=== PATIENT | male | born 1980 | race Caucasian/White ===

== ENCOUNTER 2017-12-01 17:49 | Emergency (ER) | payer OTHER ==
[2017-12-01] MEDS ORDERED: FLUORESCEIN SODIUM 0.6 MG/WRAP ONE (18:48)
[2017-12-01] MEDS ORDERED: TETRACAINE HCL 0.5% 2ML OPTH ONE (18:48)
--- NOTE | 2017-12-01 19:12 | EDPHYS ---
Physician Documentation [facility] Name: Jeyson Jones Age: 36 yrs Sex: Male : 1980 Arrival Date: 12/01/2017 Time: 17:52 Bed Treatment Private MD: None, None ED Physician Alan oPsada HPI: 12/01 19:30 This 36 yrs old Male presents to ER via Ambulatory with complaints of Foreign pm1 Body In Right Eye. 19:30 The patient is experiencing foreign body sensation, to the right eye, caused by debris, pm1 from hair cut. Onset: The symptoms/episode began/occurred yesterday. Duration: the symptoms are continuous. Aggravated by nothing. Alleviated by eye flush. Associated signs and symptoms: Pertinent negatives: vision change. Patient wears glasses, wears soft contacts. Severity of symptoms: in the emergency department the symptoms have improved. The patient has not experienced similar symptoms in the past. Historical: - Allergies: 17:58 No Known Allergies; aa5 - PMHx: 17:58 None; aa5 - PSHx: 17:58 None; aa5 - Immunization history:: Last tetanus immunization: < 5 years ago. - Social history:: Smoking status: Patient/guardian denies using tobacco. - Ebola Screening: : No symptoms or risks identified at this time. ROS: 19:30 Constitutional: Negative for fever, chills, and weight loss. pm1 19:30 ENT: Negative for injury, pain, and discharge, Neck: Negative for injury, pain, and swelling, Cardiovascular: Negative for chest pain, palpitations, and edema, Respiratory: Negative for shortness of breath, cough, wheezing, and pleuritic chest pain, Abdomen/GI: Negative for abdominal pain, nausea, vomiting, diarrhea, and constipation, Back: Negative for injury and pain, MS/Extremity: Negative for injury and deformity, Skin: Negative for injury, rash, and discoloration, Neuro: Negative for headache, weakness, numbness, tingling, and seizure. 19:30 Eyes: Positive for foreign body sensation, Negative for blurry vision, redness, tearing, vision loss, visual disturbance. Exam: 19:30 Constitutional: This is a well developed, well nourished patient who is awake, alert, pm1 and in no acute distress. Head/Face: Normocephalic, atraumatic. 19:30 ENT: Nares patent. No nasal discharge, no septal abnormalities noted. Tympanic membranes are normal and external auditory canals are clear. Oropharynx with no redness, swelling, or masses, exudates, or evidence of obstruction, uvula midline. Mucous membranes moist. Neck: Trachea midline, no thyromegaly or masses palpated, and no cervical lymphadenopathy. Supple, full range of motion without nuchal rigidity, or vertebral point tenderness. No Meningismus. Chest/axilla: Normal chest wall appearance and motion. Nontender with no deformity. No lesions are appreciated. Cardiovascular: Regular rate and rhythm with a normal S1 and S2. No gallops, murmurs, or rubs. Normal PMI, no JVD. No pulse deficits. Respiratory: Lungs have equal breath sounds bilaterally, clear to auscultation and percussion. No rales, rhonchi or wheezes noted. No increased work of breathing, no retractions or nasal flaring. Abdomen/GI: Soft, non-tender, with normal bowel sounds. No distension or tympany. No guarding or rebound. No evidence of tenderness throughout. Back: No spinal tenderness. No costovertebral tenderness. Full range of motion. Skin: Warm, dry with normal turgor. Normal color with no rashes, no lesions, and no evidence of cellulitis. MS/ Extremity: Pulses equal, no cyanosis. Neurovascular intact. Full, normal range of motion. 19:30 Eyes: Periorbital structures: appear normal, Pupils: no acute changes, normal size, normal reaction to light, Extraocular movements: no acute changes, Conjunctiva: normal, no chemosis, no excoriation, no exudate, no injection, no subconjunctival hemorrhage no abnormal tearing, Corneas: abrasion, that is small, on the right, at 3 o'clock, foreign body, is not appreciated, a fluorescein strip employed to appreciate the findings, Sclera: no appreciated abnormality, Lids and lashes: appear normal, bilaterally, no acute changes. 19:30 Neuro: Orientation: is normal, Gait: is steady, at a normal pace, without difficulty. Vital Signs: 17:58 BP 135 / 94; Pulse 72; Resp 18 S; Temp 98.2(O); Pulse Ox 99% on R/A; Weight 90.72 kg aa5 (R); Height 6 ft. 0 in. (182.88 cm) (R); Pain 0/10; 17:58 Body Mass Index 27.12 (90.72 kg, 182.88 cm) aa5 Visual Acuity: 18:55 Left Eye Visual acuity 20/20, Pupil size 4 mm, Normal, React To Light, Reactive To sg Accomodation; Right Eye Visual acuity 20/20, Pupil size 4 mm, Normal, React To Light, Reactive To Accomodation; Both Eyes Visual acuity 20/10; With Lenses; MDM: 18:24 Patient medically screened. [facility] 19:10 Data reviewed: vital signs. Data interpreted: Pulse oximetry: on room air is 99 %. pm1 Interpretation: normal. Counseling: I had a detailed discussion with the patient and/or guardian regarding: the historical points, exam findings, and any diagnostic results supporting the discharge/admit diagnosis, the need for outpatient follow up, to return to the emergency department if symptoms worsen or persist or if there are any questions or concerns that arise at home. 12/01 18:35 Order name: Visual Acuity; Complete Time: 18:49 pm1 12/01 18:35 Order name: Eye Tray; Complete Time: 18:49 pm1 12/01 18:35 Order name: Fluoresene Opth strip; Complete Time: 18:49 pm1 Administered Medications: 19:20 Drug: Tetracaine Drops 0.5 % 1 drops Route: Ophthalmic; Site: right eye; lp1 19:29 Drug: Gentamicin Drops 0.3 % 2 drops Route: Ophthalmic; Site: right eye; lp1 Disposition: 12/02 06:20 Co-signature as Attending Physician, Alan Posada MD I agree with the assessment and [facility] plan of care. Disposition: 12/01/17 19:11 Discharged to Home. Impression: Injury of conjunctiva and corneal abrasion without foreign body, right eye. - Condition is Stable. - Discharge Instructions: Corneal Abrasion. - Prescriptions for Gentamicin 0.3 % Ophthalmic Drops - instill 1 drop by OPHTHALMIC route every 4 hours for 7 days; 1 bottle. - Medication Reconciliation Form, Thank You Letter, Antibiotic Education form. - Follow up: Emergency Department; When: As needed; Reason: Worsening of condition. Follow up: Private Physician; When: 2 - 3 days; Reason: Recheck today's complaints, Continuance of care, Re-evaluation by your physician. Follow up: Ankit Davis MD; When: 2 - 3 days; Reason: Recheck today's complaints, Continuance of care, Re-evaluation by your physician. Follow up: Nannette Bethea MD; When: 2 - 3 days; Reason: Recheck today's complaints, Continuance of care, Re-evaluation by your physician. - Problem is new. - Symptoms have improved. Signatures: Alan Posada MD MD cha Calderon, Audri RN RN aa5 Brandi Desouza RN RN lp1 Von Lancaster, DELMY BED TEACHER pm1 Corrections: (The following items were deleted from the chart) 12/01 19:13 19:11 12/01/2017 19:11 Discharged to Home. Impression: Injury of conjunctiva and pm1 corneal abrasion without foreign body, right eye. Condition is Stable. Forms are Medication Reconciliation Form, Thank You Letter, Antibiotic Education, Prescription Opioid Use. Follow up: Emergency Department; When: As needed; Reason: Worsening of condition. Follow up: Private Physician; When: 2 - 3 days; Reason: Recheck today's complaints, Continuance of care, Re-evaluation by your physician. Problem is new. Symptoms have improved. pm1 19:30 19:13 12/01/2017 19:11 Discharged to Home. Impression: Injury of conjunctiva and lp1 corneal abrasion without foreign body, right eye. Condition is Stable. Discharge Instructions: Corneal Abrasion. Prescriptions for Erythromycin 5 mg/gram (0.5 %) Ophthalmic Ointment - apply 1 ribbon by OPHTHALMIC route every 8 hours; 1 tube. and Forms are Medication Reconciliation Form, Thank You Letter, Antibiotic Education. Follow up: Emergency Department; When: As needed; Reason: Worsening of condition. Follow up: Private Physician; When: 2 - 3 days; Reason: Recheck today's complaints, Continuance of care, Re-evaluation by your physician. Follow up: Ankit Davis; When: 2 - 3 days; Reason: Recheck today's complaints, Continuance of care, Re-evaluation by your physician. Follow up: Nannette Bethea; When: 2 - 3 days; Reason: Recheck today's complaints, Continuance of care, Re-evaluation by your physician. Problem is new. Symptoms have improved. pm1
--- NOTE | 2017-12-01 19:12 | ER ---
Nurse's Notes [facility] Name: Jeyson Jones Age: 36 yrs Sex: Male : 1980 Arrival Date: 12/01/2017 Time: 17:52 Bed Treatment Private MD: None, None Diagnosis: Injury of conjunctiva and corneal abrasion without foreign body, right eye Presentation: 12/01 17:57 Presenting complaint: Patient states: "I got some dust in my right eye yesterday and aa5 it's still there because I can feel it and see it". Transition of care: patient was not received from another setting of care. Onset of symptoms was November 2017. Risk Assessment: Do you want to hurt yourself or someone else? Patient reports no desire to harm self or others. Initial Sepsis Screen: Does the patient meet any 2 criteria? No. Patient's initial sepsis screen is negative. Does the patient have a suspected source of infection? No. Patient's initial sepsis screen is negative. Care prior to arrival: None. 17:57 Method Of Arrival: Ambulatory aa5 17:57 Acuity: ANDI 3 aa5 Historical: - Allergies: 17:58 No Known Allergies; aa5 - PMHx: 17:58 None; aa5 - PSHx: 17:58 None; aa5 - Immunization history:: Last tetanus immunization: < 5 years ago. - Social history:: Smoking status: Patient/guardian denies using tobacco. - Ebola Screening: : No symptoms or risks identified at this time. Screenin:30 Abuse screen: Denies threats or abuse. Denies injuries from another. Nutritional sg screening: No deficits noted. Tuberculosis screening: No symptoms or risk factors identified. Never had TB. Fall Risk None identified. Assessment: 18:30 General: Appears in no apparent distress. well groomed, well developed, well nourished, sg Behavior is calm, cooperative, appropriate for age. Pain: Denies pain. Neuro: No deficits noted. Cardiovascular: Patient's skin is warm and dry. Chest pain is denied. Respiratory: Respiratory effort is even, unlabored, Respiratory pattern is regular, symmetrical, Breath sounds are clear. GI: No signs and/or symptoms were reported involving the gastrointestinal system. : No signs and/or symptoms were reported regarding the genitourinary system. EENT: Sclera/Cornea are clear in right eye and left eye Oral mucosa is moist. Throat is pink. Derm: Skin is pink, warm \\T\\ dry. Musculoskeletal: No signs and/or symptoms reported regarding the musculoskeletal system. 19:30 Reassessment: Patient appears in no apparent distress at this time. Patient is alert, lp1 oriented x 3, equal unlabored respirations, skin warm/dry/pink. Patient states feeling better. Vital Signs: 17:58 BP 135 / 94; Pulse 72; Resp 18 S; Temp 98.2(O); Pulse Ox 99% on R/A; Weight 90.72 kg aa5 (R); Height 6 ft. 0 in. (182.88 cm) (R); Pain 0/10; 17:58 Body Mass Index 27.12 (90.72 kg, 182.88 cm) aa5 Visual Acuity: 18:55 Left Eye Visual acuity 20/20, Pupil size 4 mm, Normal, React To Light, Reactive To sg Accomodation; Right Eye Visual acuity 20/20, Pupil size 4 mm, Normal, React To Light, Reactive To Accomodation; Both Eyes Visual acuity 20/10; With Lenses; ED Course: 17:52 Patient arrived in ED. mr 17:52 None, None is Private Physician. mr 17:57 Arm band placed on. aa5 17:58 Triage completed. aa5 18:23 Von Lancaster NP is PHCP. pm1 18:23 Alan Posada MD is Attending Physician. pm1 18:30 Patient did not have IV access during this emergency room visit. sg 19:12 Ankit Davis MD is Referral Physician. pm1 19:12 Nannette Bethea MD is Referral Physician. pm1 19:20 Brandi Desouza, BEN is Primary Nurse. lp1 19:20 Patient has correct armband on for positive identification. lp1 19:20 No provider procedures requiring assistance completed. lp1 Administered Medications: 19:20 Drug: Tetracaine Drops 0.5 % 1 drops Route: Ophthalmic; Site: right eye; lp1 19:29 Drug: Gentamicin Drops 0.3 % 2 drops Route: Ophthalmic; Site: right eye; lp1 Outcome: 19:11 Discharge ordered by . pm1 19:30 Discharged to home ambulatory. lp1 19:30 Condition: good 19:30 Discharge instructions given to patient, Instructed on discharge instructions, follow up and referral plans. medication usage, Demonstrated understanding of instructions, follow-up care, medications, Prescriptions given X 1. 19:30 Patient left the ED. lp1 Signatures: Reece Hooper RN RN Danelle Pineda Gerber, Imelda RN RN aa5 Brandi Desouza RN RN lp1 Von Lancaster, INDUSTRIAL GAS PRODUCTION OPERATOR INDUSTRIAL GAS PRODUCTION OPERATOR pm1
[2017-12-01] MEDS ORDERED: GENTAMICIN 0.3% OPTH DROP 5ML ONE (19:29)
== END 2017-12-01 19:30 | disposition home or self-care (01) ==
LOC: ER 17:49
DX: S05.01XA Injury of conjunctiva and corneal abrasion without foreign body, right eye, initial encounter (principal)
CPT/HCPCS: 99283